=== PATIENT | male | born 1990 | race Caucasian/White ===

== ENCOUNTER 2020-01-18 08:04 | Inpatient (IN) | payer MEDICAID ==
[~2020-01-18] VITALS: Ht 180.3 cm; Wt 72.9 kg
[2020-01-18] MEDS ORDERED: OLAN5TAB2 PO (09:17)
[2020-01-18] MEDS ORDERED: BUSP10TA23 PO (09:17)
[2020-01-18 10:07] LABS: BASOPHILS % (AUTO) 0.5 % (0.0-2.0); EOSINOPHILS % (AUTO) 0.2 % (1.0-6.0); HEMATOCRIT 37.4 % (41-53); HEMOGLOBIN 12.6 g/dL (13.5-17.5); LYMPHOCYTES % (AUTO) 17.2 % (22.0-44.0); MEAN CORPUSCULAR HEMOGLOBIN 29.9 pg (26.0-34.0); MEAN CORPUSCULAR HGB CONC 33.7 G/dL (31.0-37.0); MEAN CORPUSCULAR VOLUME 89 fL (80-100); MONOCYTES # (AUTO) 1.3 K/uL (0.1-1.0); MONOCYTES % (AUTO) 11.5 % (2.0-9.0); NEUTROPHILS % (AUTO) 70.6 % (40.0-70.0); PLATELET COUNT (AUTO) 322 K/uL (150-450); RED BLOOD CELL COUNT(AUTO) 4.21 MIL/uL (4.50-5.90); RED CELL DISTRIBUTION WIDTH 13.2 % (11.5-14.5)
[2020-01-18 10:18] LABS: ANION GAP 9 mmol/L (8-16); CALCIUM, TOTAL 8.7 mg/dL (8.8-10.5); CARBON DIOXIDE 26 mmol/L (22-29); CHLORIDE 101 mmol/L (98-107); CREATININE 0.96 mg/dL (0.60-1.30); GLOMERULAR FILTR. RATE CALC > 60 mL/min (>60); GLUCOSE,RANDOM 130 mg/dL (70-110); POTASSIUM 3.4 mmol/L (3.5-5.1); SODIUM SERUM 136 mmol/L (136-145); UREA NITROGEN, BLOOD 20 mg/dL (7-18)
[2020-01-18 10:26] LABS: ALANINE AMINOTRANSFERASE 89 U/L (12-78); ALBUMIN 3.5 g/dL (3.4-5.0); ALKALINE PHOSPHATASE 72 U/L (46-116); ASPARTATE AMINOTRANSFERASE 66 U/L (15-37); BILIRUBIN,TOTAL 0.8 mg/dL (0.1-1.0); TOTAL PROTEIN, SERUM 7.5 g/dL (6.4-8.2)
[2020-01-18] MEDS ORDERED: LORazepam 2 MG TABLET PO PRN (10:30)
[2020-01-18] MEDS ORDERED: ZOLPIDEM TARTRATE 10 MG TABLET PO PRN (10:30)
[2020-01-18] MEDS ORDERED: HALOPERIDOL 5 MG TABLET PO PRN (10:30)
[2020-01-18 13:33] VITALS: BP 144/85
[2020-01-18 13:51] VITALS: BP 144/85
[2020-01-18 14:03] VITALS: BP 144/85
[2020-01-18] MEDS: OLANZapine 5 MG TABLET PO SCH (16:47)
[2020-01-18] MEDS: BusPIRone HCL 10 MG TABLET PO SCH (17:20)
[2020-01-18] MEDS ORDERED: POTASSIUM CHLORIDE 20 MEQ ER TABLET PO ONE (17:45)
[2020-01-18 18:54] VITALS: BP 118/56
[2020-01-18] MEDS: ALOE VERA 100% 360 ML GEL TP SCH (19:28)
[2020-01-19 08:19] LABS: CHOL/HDL RATIO 3.3 (4.2-7.3); POTASSIUM 3.8 mmol/L (3.5-5.1)
[2020-01-19] MEDS: BusPIRone HCL 10 MG TABLET PO SCH ×2 (09:42→16:17)
[2020-01-19] MEDS: OLANZapine 5 MG TABLET PO SCH ×2 (09:42→16:17)
[2020-01-19] MEDS: ALOE VERA 100% 360 ML GEL TP SCH ×2 (09:42→16:17)
[2020-01-19 09:45] VITALS: BP 128/76
[2020-01-19] MEDS ORDERED: ACETAMINOPHEN 325 MG TABLET PO PRN (13:00)
[2020-01-19] MEDS ORDERED: PETROLATUM,WHITE 28 GM JELLY TP PRN (13:00)
[2020-01-19] MEDS ORDERED: MAGNESIUM HYDROXIDE SUSPENSION 30 ML UDCUP PO PRN (13:00)
[2020-01-19] MEDS ORDERED: NICOTINE 14 MG/24 HOUR PATCH TD PRN (13:00)
[2020-01-19] MEDS ORDERED: MAG HYDROX/AL HYDROX/SIMETH ES 30 ML SUSPENSION UDCUP PO PRN (13:00)
[2020-01-19] MEDS ORDERED: GuaiFENesin/D-METHORPHAN [SUGAR-FREE] 200-20MG/10 ML SYRUP UDCUP PO PRN (13:00)
[2020-01-19] MEDS ORDERED: IBUPROFEN 400 MG TABLET PO PRN (13:00)
[2020-01-19] MEDS ORDERED: ONDANSETRON HCL 4 MG TABLET PO PRN (13:00)
[2020-01-19] MEDS ORDERED: CloNIDine HCL 0.1 MG TABLET PO PRN (13:00)
[2020-01-19] MEDS ORDERED: DOCUSATE SODIUM 100 MG CAPSULE PO PRN (13:00)
[2020-01-19] MEDS ORDERED: LOPERAMIDE HCL 2 MG CAPSULE PO PRN (13:00)
[2020-01-19] MEDS ORDERED: ALBUTEROL SULFATE HFA 90 MCG/PUFF 8 GM INHALER IH PRN (13:00)
[2020-01-19 18:10] VITALS: BP 116/98
[2020-01-20] MEDS: OLANZapine 5 MG TABLET PO SCH ×2 (08:49→16:33)
[2020-01-20] MEDS: ALOE VERA 100% 360 ML GEL TP SCH ×2 (08:49→16:33)
[2020-01-20] MEDS: BusPIRone HCL 10 MG TABLET PO SCH ×2 (08:49→16:33)
[2020-01-20 09:29] VITALS: BP 130/86
[2020-01-20 16:00] VITALS: BP 120/66
[2020-01-20] MEDS: ZIPRASIDONE HCL 20 MG CAPSULE PO SCH (16:33)
[2020-01-21] MEDS: ZIPRASIDONE HCL 20 MG CAPSULE PO SCH ×2 (06:35→16:29)
[2020-01-21 09:34] VITALS: BP 143/76
[2020-01-21] MEDS: ALOE VERA 100% 360 ML GEL TP SCH ×2 (10:14→16:31)
[2020-01-21] MEDS: OLANZapine 5 MG TABLET PO SCH (10:14)
[2020-01-21] MEDS: BusPIRone HCL 10 MG TABLET PO SCH ×2 (10:14→16:29)
[2020-01-21] MEDS ORDERED: ZIPR20CA2 PO (12:49)
== END 2020-01-21 17:05 | disposition home or self-care (01) | DRG 885 ==
LOC: EMS 08:05 → 3EI 10:21
PROVIDERS: ADMIT Psychiatry & Neurology Psychiatry; ATTEND Psychiatry & Neurology Psychiatry
DX: F20.9 Schizophrenia, unspecified (principal); Z59.0 Homelessness; Z91.5 Personal history of self-harm; D72.829 Elevated white blood cell count, unspecified; D64.9 Anemia, unspecified; R74.0 Nonspecific elevation of levels of transaminase and lactic acid dehydrogenase [LDH]; E87.6 Hypokalemia; F15.90 Other stimulant use, unspecified, uncomplicated
CPT/HCPCS: 83036; 84132; G0480

== ENCOUNTER 2020-01-22 23:53 | Inpatient (IN) | payer MEDICAID ==
[~2020-01-22] VITALS: Ht 180.3 cm; Wt 74.1 kg
[~2020-01-22 23:53] MED LIST: BUSP10TA23 PO; ZIPR20CA2 PO
[2020-01-23 02:14] LABS: BASOPHILS % (AUTO) 0.8 % (0.0-2.0); EOSINOPHILS % (AUTO) 0.1 % (1.0-6.0); HEMATOCRIT 41.4 % (41-53); HEMOGLOBIN 14.2 g/dL (13.5-17.5); LYMPHOCYTES % (AUTO) 17.5 % (22.0-44.0); MEAN CORPUSCULAR HEMOGLOBIN 30.5 pg (26.0-34.0); MEAN CORPUSCULAR HGB CONC 34.3 G/dL (31.0-37.0); MEAN CORPUSCULAR VOLUME 89 fL (80-100); MONOCYTES # (AUTO) 0.9 K/uL (0.1-1.0); NEUTROPHILS # (AUTO) 8.4 K/uL (1.8-7.7); NEUTROPHILS % (AUTO) 73.6 % (40.0-70.0); PLATELET COUNT (AUTO) 379 K/uL (150-450); RED BLOOD CELL COUNT(AUTO) 4.66 MIL/uL (4.50-5.90); RED CELL DISTRIBUTION WIDTH 13.7 % (11.5-14.5)
[2020-01-23] MEDS ORDERED: OLANZapine 5 MG TABLET PO ONE (02:15)
[2020-01-23 02:28] LABS: ANION GAP 12 mmol/L (8-16); CALCIUM, TOTAL 8.9 mg/dL (8.8-10.5); CARBON DIOXIDE 27 mmol/L (22-29); CHLORIDE 103 mmol/L (98-107); CREATININE 0.93 mg/dL (0.60-1.30); GLOMERULAR FILTR. RATE CALC > 60 mL/min (>60); GLUCOSE,RANDOM 111 mg/dL (70-110); POTASSIUM 3.2 mmol/L (3.5-5.1); SODIUM SERUM 142 mmol/L (136-145); UREA NITROGEN, BLOOD 16 mg/dL (7-18)
[2020-01-23 02:34] LABS: ALANINE AMINOTRANSFERASE 74 U/L (12-78); ALBUMIN 3.9 g/dL (3.4-5.0); ALKALINE PHOSPHATASE 67 U/L (46-116); ASPARTATE AMINOTRANSFERASE 45 U/L (15-37); BILIRUBIN,TOTAL 0.5 mg/dL (0.1-1.0); TOTAL PROTEIN, SERUM 8.3 g/dL (6.4-8.2)
[2020-01-23] MEDS ORDERED: POTASSIUM CHLORIDE 20 MEQ ER TABLET PO ONE (03:30)
[2020-01-23] MEDS ORDERED: OLANZapine 5 MG RAPDIS TABLET PO PRN (04:00)
[2020-01-23] MEDS ORDERED: LORazepam 2 MG TABLET PO PRN (04:00)
[2020-01-23 06:21] VITALS: BP 137/78
[2020-01-23] MEDS ORDERED: MAGNESIUM HYDROXIDE SUSPENSION 30 ML UDCUP PO PRN (07:45)
[2020-01-23] MEDS ORDERED: DOCUSATE SODIUM 100 MG CAPSULE PO PRN (07:45)
[2020-01-23] MEDS ORDERED: ACETAMINOPHEN 325 MG TABLET PO PRN (07:45)
[2020-01-23] MEDS ORDERED: ONDANSETRON HCL 4 MG TABLET PO PRN (07:45)
[2020-01-23] MEDS ORDERED: PETROLATUM,WHITE 28 GM JELLY TP PRN (07:45)
[2020-01-23] MEDS ORDERED: LOPERAMIDE HCL 2 MG CAPSULE PO PRN (07:45)
[2020-01-23] MEDS ORDERED: IBUPROFEN 400 MG TABLET PO PRN (07:45)
[2020-01-23] MEDS ORDERED: MAG HYDROX/AL HYDROX/SIMETH ES 30 ML SUSPENSION UDCUP PO PRN (07:45)
[2020-01-23] MEDS ORDERED: CloNIDine HCL 0.1 MG TABLET PO PRN (07:45)
[2020-01-23] MEDS ORDERED: GuaiFENesin/D-METHORPHAN [SUGAR-FREE] 200-20MG/10 ML SYRUP UDCUP PO PRN (07:45)
[2020-01-23] MEDS ORDERED: ALBUTEROL SULFATE HFA 90 MCG/PUFF 8 GM INHALER IH PRN (07:45)
[2020-01-23] MEDS ORDERED: NICOTINE 14 MG/24 HOUR PATCH TD PRN (07:45)
[2020-01-23 08:00] VITALS: BP 123/74
[2020-01-23 08:47] LABS: AMPHET/METH SCREEN,URINE POSITIVE (NEGATIVE); BARBITURATE SCREEN, URINE NEGATIVE (NEGATIVE); BENZODIAZEPINES SCREEN,URINE NEGATIVE (NEGATIVE); CANNABINOID SCREEN,URINE NEGATIVE (NEGATIVE); COCAINE SCREEN,URINE NEGATIVE (NEGATIVE); METHADONE SCREEN, URINE NEGATIVE (NEGATIVE); OPIATE SCREEN,URINE NEGATIVE (NEGATIVE)
[2020-01-23 08:48] LABS: PHENCYCLIDINE SCREEN,URINE NEGATIVE (NEGATIVE)
[2020-01-23 08:49] LABS: APPEARANCE,URINE CLEAR (CLEAR); BILIRUBIN,URINE NEGATIVE (NEGATIVE); GLUCOSE, URINE (UA) NEGATIVE (NEGATIVE); KETONES,URINE NEGATIVE (NEGATIVE); LEUKOCYTE ESTERASE ,URINE NEGATIVE (NEGATIVE); NITRATE,URINE NEGATIVE (NEGATIVE); OCCULT BLOOD,URINE NEGATIVE (NEGATIVE); PROTEIN,URINE POS 1+ (NEGATIVE); UROBILINOGEN,URINE 0.2 mg/dL (<=1.0)
[2020-01-23 09:06] LABS: BACTERIA,URINE None Seen /HPF (None Seen); RBC,URINE None Seen /HPF (0-2); WBC,URINE None Seen /HPF (0-5)
[2020-01-23] MEDS: ZIPRASIDONE HCL 20 MG CAPSULE PO SCH (16:40)
[2020-01-23] MEDS: BusPIRone HCL 10 MG TABLET PO SCH (16:40)
[2020-01-23 16:57] VITALS: BP 123/71
[2020-01-23 21:50] VITALS: BP 119/79
[2020-01-24 06:16] VITALS: BP 108/54
[2020-01-24] MEDS: ZIPRASIDONE HCL 20 MG CAPSULE PO SCH ×2 (06:41→17:43)
[2020-01-24 07:57] LABS: CHOL/HDL RATIO 3.6 (4.2-7.3)
[2020-01-24 08:00] VITALS: BP 117/58
[2020-01-24] MEDS: BusPIRone HCL 10 MG TABLET PO SCH ×2 (11:08→16:34)
[2020-01-24 16:00] VITALS: BP 97/60
[2020-01-25 05:46] VITALS: BP 122/65
[2020-01-25] MEDS: ZIPRASIDONE HCL 20 MG CAPSULE PO SCH ×2 (06:51→16:35)
[2020-01-25 08:00] VITALS: BP 139/71
[2020-01-25] MEDS: BusPIRone HCL 10 MG TABLET PO SCH ×2 (09:59→16:35)
[2020-01-25 16:00] VITALS: BP 117/65
[2020-01-26] MEDS: ZIPRASIDONE HCL 20 MG CAPSULE PO SCH ×2 (06:45→16:29)
[2020-01-26 08:00] VITALS: BP 112/52
[2020-01-26] MEDS: BusPIRone HCL 10 MG TABLET PO SCH ×2 (08:45→16:29)
[2020-01-26 19:25] LABS: AMPHET/METH SCREEN,URINE NEGATIVE (NEGATIVE); BARBITURATE SCREEN, URINE NEGATIVE (NEGATIVE); BENZODIAZEPINES SCREEN,URINE NEGATIVE (NEGATIVE); CANNABINOID SCREEN,URINE NEGATIVE (NEGATIVE); COCAINE SCREEN,URINE NEGATIVE (NEGATIVE); METHADONE SCREEN, URINE NEGATIVE (NEGATIVE); OPIATE SCREEN,URINE NEGATIVE (NEGATIVE)
[2020-01-26 19:26] LABS: PHENCYCLIDINE SCREEN,URINE NEGATIVE (NEGATIVE)
[2020-01-26 19:45] VITALS: BP 116/66
[2020-01-26] MEDS: ZOLPIDEM TARTRATE 10 MG TABLET PO PRN (21:36)
[2020-01-27] MEDS: ZIPRASIDONE HCL 20 MG CAPSULE PO SCH ×2 (06:51→16:11)
[2020-01-27] MEDS: BusPIRone HCL 10 MG TABLET PO SCH ×2 (09:04→16:11)
[2020-01-27 09:38] VITALS: BP 115/71
[2020-01-27 16:00] VITALS: BP 106/58
[2020-01-27] MEDS: ZOLPIDEM TARTRATE 10 MG TABLET PO PRN (20:35)
[2020-01-28] MEDS: ZIPRASIDONE HCL 20 MG CAPSULE PO SCH ×2 (06:57→16:33)
[2020-01-28] MEDS: BusPIRone HCL 10 MG TABLET PO SCH ×2 (08:52→16:23)
[2020-01-28 09:25] VITALS: BP 114/58
[2020-01-28 16:00] VITALS: BP 113/66
[2020-01-28] MEDS: ARIPiprazole 5 MG TABLET PO SCH (18:00)
[2020-01-28] MEDS ORDERED: ARIPiprazole 2 MG TABLET PO SCH (18:00)
[2020-01-28] MEDS: ZOLPIDEM TARTRATE 10 MG TABLET PO PRN (20:44)
[2020-01-29] MEDS: ZIPRASIDONE HCL 20 MG CAPSULE PO SCH ×2 (06:32→16:54)
[2020-01-29] MEDS: ARIPiprazole 5 MG TABLET PO SCH (08:17)
[2020-01-29] MEDS: BusPIRone HCL 10 MG TABLET PO SCH ×2 (08:17→16:22)
[2020-01-29 09:38] VITALS: BP 115/71
[2020-01-29 16:00] VITALS: BP 121/65
[2020-01-29] MEDS: ZOLPIDEM TARTRATE 10 MG TABLET PO PRN (20:35)
[2020-01-30] MEDS: ZIPRASIDONE HCL 20 MG CAPSULE PO SCH (06:47)
[2020-01-30 08:30] VITALS: BP 110/56
[2020-01-30] MEDS: BusPIRone HCL 10 MG TABLET PO SCH ×2 (08:37→16:45)
[2020-01-30] MEDS ORDERED: ARIPiprazole LAUROXIL ER SUSPENSION 1064 MG/3.9 ML SYRINGE IM SCH (09:00)
[2020-01-30] MEDS ORDERED: ARIPiprazole 15 MG TABLET PO ONE (09:00)
[2020-01-30] MEDS ORDERED: ARIPiprazole LAUROXIL,SUBMICR. ER SUSPENSION 675 MG/2.4 ML SYRINGE IM ONE (09:00)
[2020-01-30 17:13] VITALS: BP 118/82
[2020-01-30] MEDS: ZOLPIDEM TARTRATE 10 MG TABLET PO PRN (20:38)
[2020-01-31 06:02] VITALS: BP 121/75
[2020-01-31] MEDS: BusPIRone HCL 10 MG TABLET PO SCH (08:22)
[2020-01-31] MEDS ORDERED: MULTIVITAMINS WITH MINERALS, THERAPEUTIC TABLET PO SCH (09:00)
[2020-01-31 09:21] VITALS: BP 114/61
[2020-01-31] MEDS ORDERED: MULT-1239 PO (13:17)
[2020-01-31] MEDS ORDERED: ARIP1064 IM (13:17)
== END 2020-01-31 15:25 | disposition home or self-care (01) | DRG 885 ==
LOC: EMS 23:54 → 3EI 01-23 03:57
PROVIDERS: ADMIT Psychiatry & Neurology Psychiatry; ATTEND Psychiatry & Neurology Psychiatry
DX: F20.9 Schizophrenia, unspecified (principal); F15.10 Other stimulant abuse, uncomplicated; R63.0 Anorexia; D64.9 Anemia, unspecified; D72.829 Elevated white blood cell count, unspecified; E87.6 Hypokalemia; F10.10 Alcohol abuse, uncomplicated; R74.0 Nonspecific elevation of levels of transaminase and lactic acid dehydrogenase [LDH]; Z79.899 Other long term (current) drug therapy; Z91.14 Patient's other noncompliance with medication regimen; Z72.89 Other problems related to lifestyle; Z71.51 Drug abuse counseling and surveillance of drug abuser
CPT/HCPCS: 80307; 87081; G0480

== ENCOUNTER 2020-07-29 22:05 | Emergency (ER) | payer MEDICAID ==
[~2020-07-29] VITALS: Ht 172.7 cm; Wt 79.5 kg
[~2020-07-29 22:05] MED LIST changes: +ARIP1064 IM; +MULT-1239 PO; -ZIPR20CA2 PO
[2020-07-29 23:27] LABS: BASOPHILS % (AUTO) 0.3 % (0.0-2.0); EOSINOPHILS % (AUTO) 0.6 % (1.0-6.0); HEMOGLOBIN 14.2 g/dL (13.5-17.5); LYMPHOCYTES # (AUTO) 1.5 K/uL (1.0-4.8); MEAN CORPUSCULAR HEMOGLOBIN 30.2 pg (26.0-34.0); MEAN CORPUSCULAR HGB CONC 33.8 G/dL (31.0-37.0); MEAN CORPUSCULAR VOLUME 89 fL (80-100); MONOCYTES # (AUTO) 0.7 K/uL (0.1-1.0); MONOCYTES % (AUTO) 5.5 % (2.0-9.0); NEUTROPHILS # (AUTO) 10.1 K/uL (1.8-7.7); NEUTROPHILS % (AUTO) 81.6 % (40.0-70.0); PLATELET COUNT (AUTO) 326 K/uL (150-450); RED CELL DISTRIBUTION WIDTH 13.5 % (11.5-14.5)
[2020-07-29 23:32] LABS: PROTHROMBIN TIME 10.3 SEC (9.4-11.6)
[2020-07-29 23:38] LABS: ANION GAP 12 mmol/L (8-16); CALCIUM, TOTAL 8.8 mg/dL (8.8-10.5); CARBON DIOXIDE 24 mmol/L (22-29); CHLORIDE 103 mmol/L (98-107); CREATININE 0.92 mg/dL (0.60-1.30); GLOMERULAR FILTR. RATE CALC > 60 mL/min (>60); GLUCOSE,RANDOM 103 mg/dL (70-110); POTASSIUM 3.4 mmol/L (3.5-5.1); SODIUM SERUM 139 mmol/L (136-145); UREA NITROGEN, BLOOD 15 mg/dL (7-18)
[2020-07-29 23:46] LABS: AMMONIA 13 umol/L (11-32)
[2020-07-29 23:56] LABS: TROPONIN I < 0.02 ng/mL (0.00-0.05)
[2020-07-30 00:03] LABS: ALANINE AMINOTRANSFERASE 26 U/L (12-78); ALBUMIN 3.7 g/dL (3.4-5.0); ALKALINE PHOSPHATASE 75 U/L (46-116); ASPARTATE AMINOTRANSFERASE 22 U/L (15-37); BILIRUBIN,TOTAL 0.3 mg/dL (0.1-1.0); CREATINE KINASE, TOTAL ONLY 298 U/L (39-308); TOTAL PROTEIN, SERUM 7.9 g/dL (6.4-8.2)
[2020-07-30 00:07] LABS: LACTIC ACID 1.8 mmol/L (0.4-2.0)
[2020-07-30 05:29] VITALS: BP 118/80
== END 2020-07-30 05:33 | disposition home or self-care (01) ==
LOC: EMS 22:05
DX: F10.129 Alcohol abuse with intoxication, unspecified (principal); F20.9 Schizophrenia, unspecified; Z79.899 Other long term (current) drug therapy; Y90.6 Blood alcohol level of 120-199 mg/100 ml
CPT/HCPCS: 36415; 70450; 71045; 72125; 80053; 82140; 82550; 82962; 83605; 84484; 85025; 85610; 85730; 93005; 99285; G0480

== ENCOUNTER 2022-07-27 20:53 | Inpatient (IN) | payer MEDICAID ==
[~2022-07-27] VITALS: Ht 177.8 cm; Wt 64.9 kg
[~2022-07-27 20:53] MED LIST changes: -ARIP1064 IM; +ARIP10642 IM
[2022-07-27] MEDS ORDERED: OLANZapine 5 MG RAPDIS TABLET PO ONE (22:45)
[2022-07-27 22:59] LABS: COVID AG,FIA SOURCE NASOPHARYNGEAL
[2022-07-27] MEDS ORDERED: LORazepam 2 MG/ML VIAL IM ONE (23:30)
[2022-07-27] MEDS ORDERED: HALOPERIDOL LACTATE 5 MG/ML VIAL IM ONE (23:30)
[2022-07-27] MEDS ORDERED: DiphenhydrAMINE HCL 50 MG/ML VIAL IM ONE (23:30)
[2022-07-28] MEDS ORDERED: ZOLPIDEM TARTRATE 10 MG TABLET PO PRN (06:45)
[2022-07-28 09:10] LABS: APPEARANCE,URINE CLEAR (CLEAR); BILIRUBIN,URINE NEGATIVE (NEGATIVE); GLUCOSE, URINE (UA) NEGATIVE (NEGATIVE); KETONES,URINE NEGATIVE (NEGATIVE); LEUKOCYTE ESTERASE ,URINE NEGATIVE (NEGATIVE); NITRATE,URINE NEGATIVE (NEGATIVE); OCCULT BLOOD,URINE NEGATIVE (NEGATIVE); PROTEIN,URINE NEGATIVE (NEGATIVE); SPECIFIC GRAVITIY, URINE 1.013 (1.003-1.030); UROBILINOGEN,URINE <=1.0 mg/dL (<=1.0)
[2022-07-28 09:42] VITALS: BP 121/69
[2022-07-28 10:07] LABS: AMPHET/METH SCREEN,URINE NEGATIVE (NEGATIVE); BARBITURATE SCREEN, URINE NEGATIVE (NEGATIVE); BENZODIAZEPINES SCREEN,URINE NEGATIVE (NEGATIVE); CANNABINOID SCREEN,URINE NEGATIVE (NEGATIVE); COCAINE SCREEN,URINE NEGATIVE (NEGATIVE); METHADONE SCREEN, URINE NEGATIVE (NEGATIVE); OPIATE SCREEN,URINE NEGATIVE (NEGATIVE)
[2022-07-28 10:13] LABS: PHENCYCLIDINE SCREEN,URINE NEGATIVE (NEGATIVE)
[2022-07-28] MEDS: ARIPiprazole 10 MG TABLET PO SCH (16:34)
[2022-07-28 16:54] VITALS: BP 97/53
[2022-07-28] MEDS: BusPIRone HCL 10 MG TABLET PO SCH (20:26)
[2022-07-29] MEDS: ARIPiprazole 10 MG TABLET PO SCH (08:22)
[2022-07-29] MEDS: BusPIRone HCL 10 MG TABLET PO SCH ×2 (08:23→20:37)
[2022-07-29] MEDS ORDERED: ONDANSETRON HCL 4 MG TABLET PO PRN (15:15)
[2022-07-29] MEDS ORDERED: ACETAMINOPHEN 325 MG TABLET PO PRN (15:15)
[2022-07-29] MEDS ORDERED: IBUPROFEN 600 MG TABLET PO PRN (15:15)
[2022-07-29] MEDS ORDERED: PETROLATUM,WHITE 28 GM JELLY TP PRN (15:15)
[2022-07-29] MEDS ORDERED: ALBUTEROL SULFATE HFA 90 MCG/PUFF 8 GM INHALER IH PRN (15:15)
[2022-07-29] MEDS ORDERED: CloNIDine HCL 0.1 MG TABLET PO PRN (15:15)
[2022-07-29] MEDS ORDERED: DOCUSATE SODIUM 100 MG CAPSULE PO PRN (15:15)
[2022-07-29] MEDS ORDERED: MAG HYDROX/AL HYDROX/SIMETH ES 30 ML SUSPENSION UDCUP PO PRN (15:15)
[2022-07-29] MEDS ORDERED: BACITRACIN 28 GM OINTMENT TP PRN (15:15)
[2022-07-29] MEDS ORDERED: MAGNESIUM HYDROXIDE SUSPENSION 30 ML UDCUP PO PRN (15:15)
[2022-07-29] MEDS ORDERED: OMEPRAZOLE 20 MG CAPSULE PO PRN (15:15)
[2022-07-29] MEDS ORDERED: LOPERAMIDE HCL 2 MG CAPSULE PO PRN (15:15)
[2022-07-29] MEDS ORDERED: BENZOCAINE/MENTHOL LOZENGE PO PRN (15:15)
[2022-07-29 16:07] VITALS: BP 136/66
[2022-07-29] MEDS: LORazepam 2 MG TABLET PO PRN ×3 (16:43→21:30)
[2022-07-29] MEDS: HALOPERIDOL 5 MG TABLET PO PRN (20:37)
[2022-07-30] MEDS: MULTIVITAMINS WITH MINERALS, THERAPEUTIC TABLET PO SCH (08:31)
[2022-07-30] MEDS: BusPIRone HCL 10 MG TABLET PO SCH ×2 (08:31→20:16)
[2022-07-30] MEDS: ARIPiprazole 10 MG TABLET PO SCH (08:31)
[2022-07-30 09:06] VITALS: BP 98/60
[2022-07-30 16:07] VITALS: BP 103/57
[2022-07-30] MEDS: HALOPERIDOL 5 MG TABLET PO PRN (21:40)
[2022-07-30] MEDS: LORazepam 2 MG TABLET PO PRN (21:40)
[2022-07-31 08:28] VITALS: BP 125/79
[2022-07-31] MEDS: ARIPiprazole 10 MG TABLET PO SCH (10:21)
[2022-07-31] MEDS: MULTIVITAMINS WITH MINERALS, THERAPEUTIC TABLET PO SCH (10:21)
[2022-07-31] MEDS: BusPIRone HCL 10 MG TABLET PO SCH (10:21)
[2022-07-31] MEDS ORDERED: ARIP10TA38 PO (12:17)
[2022-08-01] MEDS ORDERED: ARIP10TA38 PO (08:38)
[2022-08-01] MEDS ORDERED: BUSP10TA23 PO (08:38)
== END 2022-07-31 17:30 | disposition home or self-care (01) | DRG 750 ==
LOC: EMS 21:13 → 3EC 07-28 06:49
PROVIDERS: ADMIT Psychiatry & Neurology Psychiatry; ATTEND Psychiatry & Neurology Psychiatry
DX: F20.0 Paranoid schizophrenia (principal); R45.851 Suicidal ideations; F32.A Depression, unspecified; Z20.822 Contact with and (suspected) exposure to COVID-19; G47.00 Insomnia, unspecified; K59.00 Constipation, unspecified; Z79.899 Other long term (current) drug therapy
CPT/HCPCS: 81003; 99285; J1200; J1630; J2060

== ENCOUNTER → 2022-11-18 23:45 | Emergency (ER) | payer MEDICAID ==
[~2022-11-18 23:45] MED LIST changes: -ARIP10642 IM; +ARIP10TA38 PO; -MULT-1239 PO
== END | disposition still patient (30) ==
LOC: EMS 23:45
DX: Z53.21 Procedure and treatment not carried out due to patient leaving prior to being seen by health care provider (principal)